=== PATIENT | female | born 2000 | race African-American/Black ===

== ENCOUNTER 2020-03-28 16:50 | Emergency (ER) | payer OTHER ==
[2020-03-28 17:05] VITALS: BP 132/83; PULSE 89; TEMP 99.1; BMI 20.9
[2020-03-28] MEDS ORDERED: ACETAMINOPHEN 500 MG TABLET (FP) PO ONE (17:18)
[2020-03-28] MEDS ORDERED: ACETAMINOPHEN 500 MG TABLET (FP) ONE (17:31)
[2020-03-28] MEDS ORDERED: diphenhydrAMINE HCL 25 MG CAPSULE (FP) PO ONE ×2 (18:03→18:32)
== END 2020-03-28 18:09 | disposition home or self-care (01) ==
LOC: JER 16:50
DX: U07.1 COVID-19 (principal)
CPT/HCPCS: 99284-25; C9803; U0003